=== PATIENT | female | born 1975 | race Caucasian/White ===

== ENCOUNTER 2018-10-31 06:21 | Day surgery (SDC) | payer OTHER ==
[2018-10-31] MEDS ORDERED: ceFAZolin 2 GM in Premix Bag 1 BAG IV ONE (06:23)
[2018-10-31] MEDS: Lactated Ringers 1,000 ML IV SCH ×2 (06:55→11:47)
[2018-10-31 07:07] LABS: CHLORIDE,CL 107 mmol/L (98-107); SODIUM,NA 141 mmol/L (136-145)
[2018-10-31] MEDS ORDERED: Scopolamine 1.5 MG Transdermal Patch TRDERM PRN ×2 (07:12→07:43)
--- NOTE | 2018-10-31 07:13 | PCM.PREANE ---
Preanesthetic Assessment - Anesthesia/Transfusion/Family Hx Anesthesia History: Prior Anesthesia Without Reaction Family History of Anesthesia Reaction: No Transfusion History: No Prior Transfusion(s) - Review of Systems General: No Symptoms Pulmonary: No Symptoms Cardiovascular: No Symptoms Gastrointestinal: No Symptoms Neurological: No Symptoms Other: Reports: None - Physical Assessment NPO Status Date: 10/31/18 NPO Status Time: 05:00 O2 Sat by Pulse Oximetry: 99 Respiratory Rate: 16 Vital Signs: Last Vital Signs Temp 96.6 F 10/31/18 06:45 Pulse 88 10/31/18 06:45 Resp 16 10/31/18 06:45 BP 120/79 10/31/18 06:45 Pulse Ox 99 10/31/18 06:45 Height: 5 ft 4 in Weight: 85.548 kg ASA Class: 2 Mental Status: Alert & Oriented x3 Airway Class: Mallampati = 1 Dentition: Reports: Normal Dentition ROM/Head Extension: Full Lungs: Clear to Auscultation, Normal Respiratory Effort Cardiovascular: Regular Rate, Regular Rhythm - Lab Values: Laboratory Last Values WBC 9.74 K/uL (4.0-11.0) 10/31/18 06:45 RBC 4.34 M/uL (4.30-5.90) 10/31/18 06:45 Hgb 13.6 g/dL (12.0-16.0) 10/31/18 06:45 Hct 41.0 % (36.0-46.0) 10/31/18 06:45 MCV 94.5 fL (80.0-98.0) 10/31/18 06:45 MCH 31.3 pg (27.0-32.0) 10/31/18 06:45 MCHC 33.2 g/dL (31.0-37.0) 10/31/18 06:45 RDW Std Deviation 48.7 fl (28.0-62.0) 10/31/18 06:45 RDW Coeff of Becky 14 % (11.0-15.0) 10/31/18 06:45 Plt Count 250 K/uL (150-400) 10/31/18 06:45 MPV 9.70 fL (7.40-12.00) 10/31/18 06:45 Nucleated RBC % 0.0 /100WBC 10/31/18 06:45 Nucleated RBCs # 0 K/uL 10/31/18 06:45 Sodium 141 mmol/L (136-145) 10/31/18 06:45 Potassium 3.8 mmol/L (3.5-5.1) 10/31/18 06:45 Chloride 107 mmol/L (98-107) 10/31/18 06:45 Carbon Dioxide 28.3 mmol/L (21.0-32.0) 10/31/18 06:45 BUN 13 mg/dL (7.0-18.0) 10/31/18 06:45 Creatinine 1.0 mg/dL (0.6-1.0) 10/31/18 06:45 Est Cr Clr Drug Dosing 62.64 mL/min 10/31/18 06:45 Estimated GFR (MDRD) > 60.0 ml/min 10/31/18 06:45 Glucose 96 mg/dL (74-106) 10/31/18 06:45 Calcium 8.6 mg/dL (8.5-10.1) 10/31/18 06:45 - Allergies Allergies/Adverse Reactions: Allergies Allergy/AdvReac Type Severity Reaction Status Date / Time latex Allergy Rash Verified 10/24/18 11:43 shellfish derived Allergy Anaphylactic Verified 10/24/18 11:43 Shock - Blood Blood Available: No - Anesthesia Plan Pre-Op Medication Ordered: None - Acknowledgements Anesthesia Type Planned: General Anesthesia Pt an Appropriate Candidate for the Planned Anesthesia: Yes Alternatives and Risks of Anesthesia Discussed w Pt/Guardian: Yes Pt/Guardian Understands and Agrees with Anesthesia Plan: Yes Additional Comments: anes prob list: htn, asthma, migraine hx, smoker plan: get PreAnesthesia Questionnaire HEENT History: Reports: Other (See Below) Other HEENT History: wears glasses Cardiovascular History: Reports: Hypertension Respiratory History: Reports: Asthma, Other (See Below) Other Respiratory History: thinks she might have sleep apnea Gastrointestinal History: Reports: GERD Other Gastrointestinal History: takes OTC meds Genitourinary History: Reports: Renal 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: Musculoskeletal History: Reports: Arthritis, Fracture Other Musculoskeletal History: hx of fx in toes, ribs and foot Neurological History: Reports: Migraines, TIA, Other (See Below) Other Neuro History: hx of TIA 8 years ago- no residual, hx of motion sickness Psychiatric History: Reports: Anxiety Endocrine/Metabolic History: Reports: Obesity/BMI 30+ - Past Surgical History HEENT Surgical History: Reports: Other (See Below) Other HEENT Surgeries/Procedures: removal of lymph nodes behind ear GI Surgical History: Reports: EGD Female Surgical History: Reports: Section, Tubal Ligation, Other ( See Below) Other Female Surgeries/Procedures: exploratory laparoscopy - SUBSTANCE USE Smoking Status *Q: Current Every Day Smoker Tobacco Use Within Last Twelve Months: Cigarettes Recreational Drug Use History: No - HOME MEDS Home Medications: Home Meds Albuterol [Proventil HFA] 2 puff INH QID PRN 10/24/18 [History] Budesonide/Formoterol [Symbicort 160-4.5 MCG] 2 puff INH BID 10/24/18 [History] Montelukast [Singulair] 10 mg PO DAILY 10/24/18 [History] Valsartan 160 mg PO QAM 10/24/18 [History] amLODIPine Besylate [Norvasc] 10 mg PO QAM 10/24/18 [History] buPROPion HCl [Wellbutrin SR] 150 mg PO BID 10/24/18 [History] - CURRENT (IN HOUSE) MEDS Current Meds: Current Medications Lactated Ringer's (Ringers, Lactated) 1,000 mls @ 100 mls/hr IV ASDIRECTED [facility] Last Admin: 10/31/18 06:55 Dose: 100 mls/hr Discontinued Medications Cefazolin Sodium/Dextrose 2 gm (/ Premix) 50 mls @ 100 mls/hr IV ONETIME ONE Stop: 10/31/18 06:52
[2018-10-31] MEDS ORDERED: Scopolamine 1.5 MG Transdermal Patch ONE (07:18)
[2018-10-31] MEDS ORDERED: Fluorescein 5 ML Vial ONE (07:30)
[2018-10-31] MEDS ORDERED: Methylene Blue 50 MG/10 ML Ampule ONE (07:30)
[2018-10-31] MEDS ORDERED: Bupivacaine 0.25% 10 ML SDV ONE (07:31)
[2018-10-31] MEDS ORDERED: Dexamethasone 4 MG/ML 5 ML MDV ONE (07:36)
[2018-10-31] MEDS ORDERED: Midazolam 1 MG/ML 2 ML SDV ONE (07:36)
[2018-10-31] MEDS ORDERED: Lidocaine 2% 5 ML SDV ONE ×2 (07:36→07:47)
[2018-10-31] MEDS ORDERED: Ketorolac 30 MG/ML SDV ONE (07:36)
[2018-10-31] MEDS ORDERED: Propofol 200 MG/20 ML SDV ONE (07:36)
[2018-10-31] MEDS ORDERED: Ondansetron 4 MG/2 ML SDV ONE (07:36)
[2018-10-31] MEDS ORDERED: fentaNYL 250 MCG/5 ML SDV ONE (07:36)
[2018-10-31] MEDS ORDERED: Meperidine PF 25 MG/ML Syringe IVPUSH PRN (07:43)
[2018-10-31] MEDS ORDERED: Promethazine 25 MG/ML SDV IM PRN ×2 (07:43→10:02)
[2018-10-31] MEDS ORDERED: Albuterol 0.083% 2.5 MG/3 ML Neb Soln NEB PRN (07:43)
[2018-10-31] MEDS ORDERED: Naloxone 0.4 MG/ML Syringe IVPUSH PRN (07:43)
[2018-10-31] MEDS ORDERED: Ondansetron 4 MG/2 ML SDV IVPUSH PRN ×2 (07:43→10:02)
[2018-10-31] MEDS ORDERED: Acetaminophen 325 MG Tab PO ONE (07:43)
[2018-10-31] MEDS ORDERED: hydrALAZINE 20 MG/ML SDV IVPUSH PRN ×2 (07:43)
[2018-10-31] MEDS ORDERED: Morphine 4 MG/ML Syringe IVPUSH PRN ×2 (07:43→10:02)
[2018-10-31] MEDS ORDERED: Atropine 0.1 MG/ML 10 ML Syringe IVPUSH PRN (07:43)
[2018-10-31] MEDS ORDERED: Metoclopramide 10 MG/2 ML SDV IVPUSH PRN (07:43)
[2018-10-31] MEDS ORDERED: Meperidine PF 25 MG/ML Syringe IV PRN (07:43)
[2018-10-31] MEDS ORDERED: Labetalol 100 MG/20 ML MDV IVPUSH PRN (07:43)
[2018-10-31] MEDS ORDERED: Acetaminophen/HYDROcodone 325-5 MG Tab PO PRN (07:43)
[2018-10-31] MEDS ORDERED: Rocuronium 100 MG/10 ML Syringe ONE (07:47)
[2018-10-31] MEDS ORDERED: Furosemide 40 MG/4 ML VIAL ONE (09:28)
[2018-10-31] MEDS ORDERED: ceFAZolin 1 GM Vial ONE (09:28)
[2018-10-31] MEDS ORDERED: Ketorolac 30 MG/ML SDV IVPUSH PRN (10:02)
[2018-10-31] MEDS ORDERED: Acetaminophen/oxyCODONE 325-5 MG Tab PO PRN (10:02)
[2018-10-31] MEDS ORDERED: Ketorolac 30 MG/ML SDV IVPUSH ONE (10:02)
[2018-10-31] MEDS ORDERED: HYDROmorphone 2 MG/ML Syringe ONE (10:05)
[2018-10-31] MEDS: fentaNYL 100 MCG/2 ML SDV IVPUSH PRN ×2 (10:07→10:35)
[2018-10-31] MEDS: HYDROmorphone 2 MG/ML SDV IVPUSH PRN ×4 (10:08→10:40)
[2018-10-31] MEDS ORDERED: Belladonna Alkaloids/Opium 16.2-30 MG Supp RECTAL PRN (10:14)
--- NOTE | 2018-10-31 10:14 | PCM.OPNOTE ---
- General Post-Op/Procedure Note Date of Surgery/Procedure: 10/31/18 Operative Procedure(s): LAVH/bilateral salpingectomy/cystoscopy Findings: 8 week uterus, tubes with previous modified magdalena tubal, normal appearing ovaries. Bilateral patent ureters Pre Op Diagnosis: Menorrhagia Post-Op Diagnosis: Same Anesthesia Technique: General ET Tube Primary Surgeon: Edilma Sanchez Pathology: uterus, tubes Fluid Replacement, Intraop: 1,500 EBL in mLs: 100 Complications: none known Condition: Stable Free Text/Narrative:: Dictation [id number]
--- NOTE | 2018-10-31 11:15 | PCM.POSTAN ---
POST ANESTHESIA ASSESSMENT - VITAL SIGNS Pulse Rate: 76 SaO2: 98 Resp Rate: 14 Blood Pressure: 128/75 - RESPIRATORY Respiratory Status: Respiratory Rate WNL, Airway Patent, O2 Saturation Stable - CARDIOVASCULAR CV Status: Pulse Rate WNL, Blood Pressure Stable - GASTROINTESTINAL GI Status: No Symptoms - POST OP HYDRATION Hydration Status: Adequate & Stable (Awake alert, questions answered. No signs or symptoms of anesthesia related problems)
[2018-10-31] MEDS ORDERED: HYDROmorphone 1 MG/ML Syringe IVPUSH ONE (11:59)
--- NOTE | 2018-10-31 12:24 | OR ---
SURGEON: Edilma Sanchez M.D. DATE OF PROCEDURE: 10/31/2018 PREOPERATIVE DIAGNOSIS: Menorrhagia. POSTOPERATIVE DIAGNOSIS: Menorrhagia. PROCEDURES: Laparoscopic-assisted vaginal hysterectomy, bilateral salpingectomy, cystoscopy. PRIMARY SURGEON: Edilma Sanchez MD. CHEMISTRY LABORATORY TECHNICIAN: Sonja Cordova. ANESTHESIA: General endotracheal anesthesia. ESTIMATED BLOOD LOSS: 100 mL. FLUIDS: 1500 mL of crystalloid. COMPLICATIONS: None known. FINDINGS: An 8-week size uterus. Fallopian tubes with previous modified Moon tubal ligation. Normal-appearing ovaries. Bilateral patent ureters. DISPOSITION: The patient to PACU, stable. PROCEDURE DETAILS: Yazmin is a 43-year-old female, who has ongoing difficulties with menorrhagia. At this time, she would like to proceed with definitive intervention in the form of hysterectomy. Risks of procedure have been discussed. Proper consent obtained. The patient was taken to the operating room where she underwent general endotracheal anesthesia, was placed in modified dorsal lithotomy position, and was prepped and draped in usual sterile technique. SCDs to lower extremities. Robbins to gravity. Received Ancef prophylactically. Time-out was performed. Speculum was introduced in the vagina. Cervix was grasped with an Allis clamp, and after gently dilating the cervix to 5 mm, a uterine HUMI manipulator was now gently placed. Balloon insufflated. All instruments other than the uterine manipulator were now removed from the vagina. Gloves changed. Attention turned abdominally. Infraumbilically, a 5 mm skin incision was created. Dissected through with hemostat down through the fascia. Anterior abdominal wall tented upward. A Veress needle was gently introduced. Saline hanging drop test was performed. Pneumoperitoneum was achieved. Veress needle was removed. A 5 mm trocar was introduced followed by laparoscope, and peritoneal contents were identified. The patient was placed in Trendelenburg positioning. Uterus was able to be mobilized easily. Left lower quadrant and right lower quadrant trocars were placed under prepping the regions with 0.25% Marcaine, creating 5 mm skin incisions, and introducing the trocars under direct visualization. The ureters were seen peristalsing away from the operative field on either side of the pelvis. The left fallopian tube was able to be isolated and using LigaSure performed a left salpingectomy up to the level of the cornua and then coming along the midline with LigaSure was able to cauterize serial pedicles as well transected them including the upper portion of the broad ligament, mid broad ligament including round ligament, base of the broad ligament, cardinal ligament, down to the level of the uterosacral ligament. Anteriorly, the bladder peritoneum was tented upward and the uterovesical reflection was visualized. There was a fair amount of scarring from her previous delivery, however, was able to create a bladder flap nicely and mobilized the bladder away from the lower uterine segment, cervix. In a similar fashion, this was performed on the patient's right side. The right fallopian tube was able to be isolated. A salpingectomy was performed up to the level of the cornua, brought the LigaSure now down in the midline port and was able to secure pedicles including the upper portion of the broad ligament, the medial aspect of the broad ligament including the round ligament, base of the broad ligament, cardinal ligament down to the level of the uterosacral ligament. Marion that the laparoscopic portion of case had been satisfactorily performed, therefore, all laparoscopic instruments removed. Pneumoperitoneum was released. Attention was turned vaginally. Cervix grasped with Domonique clamp after placing a weighted speculum and an anterior sidewall Dalton. Cervix was circumscribed with Bovie cautery. The overlying mucosa, anterior and posterior, was dissected sharply and bluntly away from the underlying peritoneum. Posterior peritoneum was tented downward and entered sharply. Longer weighted speculum replaced the shorter, and anteriorly, the anterior cul-de-sac was now gently entered with Metzenbaum scissors. A Bjorn was placed to mobilize the bladder away from operative field. Jadiel clamp was used to secure uterosacral ligament on either side, transected, and suture ligated with 2-0 Vicryl. Further pedicle on either side was able to be secured, transected, and suture ligated with 2-0 Vicryl. Uterus and fallopian tubes were now able to be handed off to the behavioral services tech to be sent to pathology. The pedicles were now closely inspected. A small area of oozing along the right pelvic sidewall was now able to be secured with Jadiel clamp and suture ligated. The vaginal cuff and uterosacral ligament on either side were able to be plicated together with 2-0 Vicryl. The cuff was now closed using 0 Vicryl in continuous running locked fashion. All sutures trimmed. The cuff was inspected, found to be hemostatic. Robbins balloon was desufflated. IV fluorescein and IV Lasix had been instilled per the Anesthesia provider. Cystoscope was now introduced using normal saline as distention media. The dome of the bladder was able to be visualized, found to be intact. Trigone was now inspected. The right ureteral orifice followed by the left orifice able to be visualized. Fluorescein-dyed urine was seen streaming from them, helping to ensure ureteral patency. The bladder was now drained. The cystoscope was removed. Robbins catheter was placed. The vaginal cuff once again inspected and found to be hemostatic. All instruments removed from the vagina. Attention was turned abdominally after gloves changed. The pneumoperitoneum was once again achieved. The laparoscope was introduced. Pelvis was now inspected. Operative field was copiously irrigated with sterile water, suction irrigated. Any areas of oozing were cauterized with LigaSure. There was one small area along the right region of the uterosacral ligament. Other than this, the pedicles appeared hemostatic. Relief pressure was decreased to 5 mmHg. Once again, hemostasis appeared evident. Therefore, the pneumoperitoneum was released. Laparoscopic instruments were removed. The trocars removed under direct visualization followed by the laparoscope and infraumbilical trocar after releasing pneumoperitoneum. The skin edges were reapproximated using 4-0 Monocryl in the subcuticular fashion. Sponge, instrument, and needle count was correct x2. The patient has tolerated the procedure well. She will go to recovery room in stable condition, specimens to pathology. EVY / LAURA /[id number]
[2018-10-31] MEDS: Acetaminophen/oxyCODONE 325-5 MG Tab PO PRN (15:41)
[2018-10-31] MEDS ORDERED: HYDROmorphone 1 MG/ML Syringe IVPUSH PRN (17:56)
--- NOTE | 2018-10-31 18:28 | PCM.SN ---
- Free Text/Narrative Note: Patient is sitting up in bed--has ambulated earlier. Pain is controlled. Denies nausea. VS are stable. Abdominal dressings are dry and intact. Explained procedure and intraoperative findings. Continue postoperative cares. Remove rene in am. Labs in am. If remains stable, anticipate discharge tomorrow.
[2018-10-31] MEDS: Docusate Sodium 100 MG Cap PO SCH (21:33)
[2018-11-01] MEDS: Acetaminophen/oxyCODONE 325-5 MG Tab PO PRN ×2 (01:05→07:34)
[2018-11-01 05:42] LABS: CHLORIDE,CL 104 mmol/L (98-107); SODIUM,NA 137 mmol/L (136-145)
[2018-11-01] MEDS: Docusate Sodium 100 MG Cap PO SCH (08:37)
--- NOTE | 2018-11-01 08:55 | PCM.SURGPN ---
- General Info Date of Service: 11/01/18 POD#: 1 Functional Status: Reports: Pain Controlled, Tolerating Diet, Ambulating, Urinating - Review of Systems General: Reports: Fatigue. Denies: Fever, Weakness Pulmonary: Denies: Shortness of Breath Cardiovascular: Denies: Chest Pain, Palpitations, Lightheadedness Gastrointestinal: Reports: Abdominal Pain (mild cramping only, pain well controlled). Denies: Nausea, Vomiting Genitourinary: Denies: Flank Pain Musculoskeletal: Reports: No Symptoms Skin: Reports: No Symptoms Neurological: Reports: No Symptoms Psychiatric: Reports: No Symptoms - Patient Data Vitals - Most Recent: Last Vital Signs Temp 36.8 C 11/01/18 07:51 Pulse 74 11/01/18 07:51 Resp 16 11/01/18 07:51 BP 140/87 11/01/18 07:51 Pulse Ox 100 11/01/18 07:51 Weight - Most Recent: 85.275 kg I&O - Last 24 Hours: Intake & Output 10/31/18 11/01/18 11/01/18 22:59 06:59 14:59 Intake Total 1372 2320 Output Total 750 4550 Balance 622 -2230 Lab Results Last 24 Hrs: Laboratory Results - last 24 hr 11/01/18 11/01/18 Range/Units 04:55 04:55 WBC 14.07 H (4.0-11.0) K/uL RBC 4.07 L (4.30-5.90) M/uL Hgb 12.7 (12.0-16.0) g/dL Hct 38.5 (36.0-46.0) % MCV 94.6 (80.0-98.0) fL MCH 31.2 (27.0-32.0) pg MCHC 33.0 (31.0-37.0) g/dL RDW Std Deviation 48.8 (28.0-62.0) fl RDW Coeff of Becky 14 (11.0-15.0) % Plt Count 251 (150-400) K/uL MPV 10.30 (7.40-12.00) fL Neut % (Auto) 77.3 (48.0-80.0) % Lymph % (Auto) 14.3 L (16.0-40.0) % [place] % (Auto) 8.3 (0.0-15.0) % Eos % (Auto) 0.0 (0.0-7.0) % Baso % (Auto) 0.1 (0.0-1.5) % Neut # (Auto) 10.9 H (1.4-5.7) K/uL Lymph # (Auto) 2.0 (0.6-2.4) K/uL [place] # (Auto) 1.2 H (0.0-0.8) K/uL Eos # (Auto) 0.0 (0.0-0.7) K/uL Baso # (Auto) 0.0 (0.0-0.1) K/uL Nucleated RBC % 0.0 /100WBC Nucleated RBCs # 0 K/uL Sodium 137 (136-145) mmol/L Potassium 4.2 (3.5-5.1) mmol/L Chloride 104 (98-107) mmol/L Carbon Dioxide 25.3 (21.0-32.0) mmol/L BUN 7 (7.0-18.0) mg/dL Creatinine 0.9 (0.6-1.0) mg/dL Est Cr Clr Drug Dosing 75.45 mL/min Estimated GFR (MDRD) > 60.0 ml/min Glucose 114 H (74-106) mg/dL Calcium 9.0 (8.5-10.1) mg/dL Med Orders - Current: Current Medications Hydrocodone Bitart/Acetaminophen ([place] 325-5 Mg) 2 tab PO Q6H PRN PRN Reason: Pain (moderate 4-6) Last Admin: 10/31/18 18:44 Dose: 2 tab Albuterol (Proventil Neb Soln) 2.5 mg NEB Q6HRRT PRN PRN Reason: Wheezing Atropine Sulfate (Atropine 0.1 Mg/Ml) 0.4 mg IVPUSH Q5M PRN PRN Reason: Bradycardia Belladonna Alkaloids/Opium (B & O Supprettes No. 15a) 1 supp RECTAL Q6H PRN PRN Reason: Pain Docusate Sodium (Colace) 100 mg PO BID ÓSCAR Last Admin: 11/01/18 08:37 Dose: 100 mg Hydralazine HCl (Apresoline) 10 mg IVPUSH ONETIME PRN PRN Reason: Hypertension Hydralazine HCl (Apresoline) 5 mg IVPUSH ONETIME PRN PRN Reason: Hypertension Lactated Ringer's (Ringers, Lactated) 1,000 mls @ 100 mls/hr IV ASDIRECTED [facility] Last Admin: 10/31/18 11:47 Dose: 100 mls/hr Ketorolac Tromethamine (Toradol) 30 mg IVPUSH Q6H PRN PRN Reason: Pain (severe 7-10) Stop: 11/05/18 10:02 Meperidine HCl (Demerol) 12.5 mg IVPUSH ONETIME PRN PRN Reason: Shivering Meperidine HCl (Demerol) 25 mg IV ONETIME PRN PRN Reason: Shivering Metoclopramide HCl (Reglan) 10 mg IVPUSH ONETIME PRN PRN Reason: Nausea Morphine Sulfate (Morphine) 4 mg IVPUSH Q2H PRN PRN Reason: Pain (severe 7-10) Naloxone HCl (Narcan) 0.1 mg IVPUSH ONETIME PRN PRN Reason: Respiratory Depression Ondansetron HCl (Zofran) 8 mg IVPUSH ONETIME PRN PRN Reason: Nausea Ondansetron HCl (Zofran) 4 mg IVPUSH Q6H PRN PRN Reason: Nausea/Vomiting Oxycodone/Acetaminophen (Percocet 325-5 Mg) 1 tab PO Q4H PRN PRN Reason: Pain (moderate 4-6) Oxycodone/Acetaminophen (Percocet 325-5 Mg) 2 tab PO Q4H PRN PRN Reason: Pain (moderate 4-6) Last Admin: 11/01/18 07:34 Dose: 2 tab Promethazine HCl (Phenergan) 12.5 mg IM ONETIME PRN PRN Reason: Nausea Promethazine HCl (Phenergan) 25 mg IM Q6H PRN PRN Reason: Nausea/Vomiting Scopolamine (Transderm-Scop) 1.5 mg TRDERM Q72H PRN PRN Reason: Nausea/Vomiting Last Admin: 10/31/18 07:18 Dose: 1.5 mg Scopolamine (Transderm-Scop) 1.5 mg TRDERM Q72H PRN PRN Reason: Nausea Discontinued Medications Acetaminophen (Tylenol) 650 mg PO NOW ONE Stop: 10/31/18 07:44 Last Admin: 10/31/18 11:37 Dose: Not Given Bupivacaine HCl (Sensorcaine-Mpf 0.25%) Confirm Administered Dose 20 ml .ROUTE .STK-MED ONE Stop: 10/31/18 07:32 Cefazolin Sodium (Ancef) Confirm Administered Dose 2 gm .ROUTE .STK-MED ONE Stop: 10/31/18 09:29 Dexamethasone (Dexamethasone) Confirm Administered Dose 20 mg .ROUTE .STK-MED ONE Stop: 10/31/18 07:37 Fentanyl (Sublimaze) Confirm Administered Dose 250 mcg .ROUTE .STK-MED ONE Stop: 10/31/18 07:37 Fentanyl (Sublimaze) 50 mcg IVPUSH Q5M PRN PRN Reason: Pain (severe 7-10) Stop: 11/01/18 07:44 Last Admin: 10/31/18 10:35 Dose: 50 mcg Fluorescein Sodium (Ak-Fluor) Confirm Administered Dose 5 ml .ROUTE .STK-MED ONE Stop: 10/31/18 07:31 Furosemide (Lasix) Confirm Administered Dose 40 mg .ROUTE .STK-MED ONE Stop: 10/31/18 09:29 Hydromorphone HCl (Dilaudid) 0.25 mg IVPUSH Q10M PRN PRN Reason: Pain (severe 7-10) Stop: 11/01/18 07:44 Last Admin: 10/31/18 10:40 Dose: 0.25 mg Hydromorphone HCl (Dilaudid) Confirm Administered Dose 2 mg .ROUTE .STK-MED ONE Stop: 10/31/18 10:06 Last Admin: 10/31/18 17:03 Dose: Not Given Hydromorphone HCl (Dilaudid) 1 mg IVPUSH ONETIME ONE Stop: 10/31/18 12:00 Last Admin: 10/31/18 10:45 Dose: 1 mg Hydromorphone HCl (Dilaudid) 0.25 mg IVPUSH Q10M PRN PRN Reason: Pain (severe 7-10) Stop: 11/01/18 07:44 Cefazolin Sodium/Dextrose 2 gm (/ Premix) 50 mls @ 100 mls/hr IV ONETIME ONE Stop: 10/31/18 06:52 Last Admin: 10/31/18 11:36 Dose: Not Given Ketorolac Tromethamine (Toradol) Confirm Administered Dose 30 mg .ROUTE .STK- MED ONE Stop: 10/31/18 07:37 Ketorolac Tromethamine (Toradol) 30 mg IVPUSH ONETIME ONE Stop: 10/31/18 10:03 Last Admin: 10/31/18 10:38 Dose: 30 mg Labetalol HCl (Normodyne) 10 mg IVPUSH Q6H PRN; Protocol PRN Reason: Hypotension Stop: 11/01/18 07:44 Lidocaine (Xylocaine-Mpf 2%) Confirm Administered Dose 5 ml .ROUTE .STK-MED ONE Stop: 10/31/18 07:37 Lidocaine (Xylocaine-Mpf 2%) Confirm Administered Dose 5 ml .ROUTE .STK-MED ONE Stop: 10/31/18 07:48 Methylene Blue (Provayblue) Confirm Administered Dose 50 mg .ROUTE .STK-MED ONE Stop: 10/31/18 07:31 Midazolam HCl (Versed 1 Mg/Ml) Confirm Administered Dose 2 mg .ROUTE .STK-MED ONE Stop: 10/31/18 07:37 Morphine Sulfate (Morphine) 4 mg IVPUSH Q10M PRN PRN Reason: Pain (severe 7-10) Stop: 11/01/18 07:44 Ondansetron HCl (Zofran) Confirm Administered Dose 8 mg .ROUTE .STK-MED ONE Stop: 10/31/18 07:37 Propofol (Diprivan 20 Ml) Confirm Administered Dose 200 mg .ROUTE .STK-MED ONE Stop: 10/31/18 07:37 Rocuronium [place] (Zemuron) Confirm Administered Dose 100 mg .ROUTE .STK-MED ONE Stop: 10/31/18 07:48 Scopolamine (Transderm-Scop) Confirm Administered Dose 1.5 mg .ROUTE .STK-MED ONE Stop: 10/31/18 07:19 Last Admin: 10/31/18 11:36 Dose: Not Given - Exam Wound/Incisions: Healing Well, Dressing Dry and Intact General: Alert, Oriented Lungs: Normal Respiratory Effort Cardiovascular: Regular Rate, Regular Rhythm GI/Abdominal Exam: Normal Bowel Sounds, Soft Extremities: No: Pedal Edema, Jaya's Sign Skin: Warm, Dry, Intact Neurological: No New Focal Deficit Psy/Mental Status: Alert, Normal Affect, Normal Mood - Problem List & Annotations (1) Menorrhagia SNOMED Code(s): 202049284 Code(s): N92.0 - EXCESSIVE AND FREQUENT MENSTRUATION WITH REGULAR CYCLE Status: Acute Current Visit: Yes - Problem List Review Problem List Initiated/Reviewed/Updated: Yes - My Orders Last 24 Hours: Active Orders 24 hr Category Date Time Status Patient Status [ADT] Routine ADT 10/31/18 10:02 Active Antiembolic Devices [RC] PER UNIT ROUTINE Care 10/31/18 10:02 Active Notify Provider Intake and Out [RC] ASDIRECTED Care 10/31/18 10:02 Active Notify Provider Vital Signs [RC] ASDIRECTED Care 10/31/18 10:02 Active Oxygen Therapy [RC] ASDIRECTED Care 10/31/18 10:02 Active RT Incentive Spirometry [RC] Q2HWA Care 10/31/18 10:02 Active Ready for Discharge [RC] PER UNIT ROUTINE Care 11/01/18 08:52 Ordered Up With Assistance [RC] PER UNIT ROUTINE Care 10/31/18 10:02 Active Up ad Dede [RC] PER UNIT ROUTINE Care 10/31/18 10:02 Active Urinary Catheter Removal [RC] Per Unit Routine Care 10/31/18 10:02 Active Vital Signs [RC] PER UNIT ROUTINE Care 10/31/18 10:02 Active Regular Diet [DIET] Diet 10/31/18 Lunch Active Acetaminophen/oxyCODONE [Percocet 325-5 MG] Med 10/31/18 10:02 Active 1 tab PO Q4H PRN Acetaminophen/oxyCODONE [Percocet 325-5 MG] Med 10/31/18 10:02 Active 2 tab PO Q4H PRN Belladonna/Opium [B & O Supprettes No. 15A] Med 10/31/18 10:14 Active 1 supp RECTAL Q6H PRN Docusate Sodium [Colace] Med 10/31/18 21:00 Active 100 mg PO BID Ketorolac [Toradol] Med 10/31/18 10:02 Active 30 mg IVPUSH Q6H PRN Morphine Med 10/31/18 10:02 Active 4 mg IVPUSH Q2H PRN Ondansetron [Zofran] Med 10/31/18 10:02 Active 4 mg IVPUSH Q6H PRN Promethazine [Phenergan] Med 10/31/18 10:02 Active 25 mg IM Q6H PRN Peripheral IV Discontinue [OM.PC] Routine Oth 10/31/18 10:02 Ordered Sequential Compression Device [OM.PC] Per Unit Routine Oth 10/31/18 10:02 Ordered Resuscitation Status Routine Resus Stat 10/31/18 10:02 Ordered Medication Orders Hydrocodone Bitart/Acetaminophen ([place] 325-5 Mg) 2 tab PO Q6H PRN PRN Reason: Pain (moderate 4-6) Last Admin: 10/31/18 18:44 Dose: 2 tab Albuterol (Proventil Neb Soln) 2.5 mg NEB Q6HRRT PRN PRN Reason: Wheezing Atropine Sulfate (Atropine 0.1 Mg/Ml) 0.4 mg IVPUSH Q5M PRN PRN Reason: Bradycardia Belladonna Alkaloids/Opium (B & O Supprettes No. 15a) 1 supp RECTAL Q6H PRN PRN Reason: Pain Docusate Sodium (Colace) 100 mg PO BID [facility] Last Admin: 11/01/18 08:37 Dose: 100 mg Admin: 10/31/18 21:33 Dose: 100 mg Hydralazine HCl (Apresoline) 10 mg IVPUSH ONETIME PRN PRN Reason: Hypertension Hydralazine HCl (Apresoline) 5 mg IVPUSH ONETIME PRN PRN Reason: Hypertension Lactated Ringer's (Ringers, Lactated) 1,000 mls @ 100 mls/hr IV ASDIRECTED [facility] Last Admin: 10/31/18 11:47 Dose: 100 mls/hr Infusion: 10/31/18 11:47 Dose: 100 mls/hr Admin: 10/31/18 06:55 Dose: 100 mls/hr Ketorolac Tromethamine (Toradol) 30 mg IVPUSH Q6H PRN PRN Reason: Pain (severe 7-10) Stop: 11/05/18 10:02 Meperidine HCl (Demerol) 12.5 mg IVPUSH ONETIME PRN PRN Reason: Shivering Meperidine HCl (Demerol) 25 mg IV ONETIME PRN PRN Reason: Shivering Metoclopramide HCl (Reglan) 10 mg IVPUSH ONETIME PRN PRN Reason: Nausea Morphine Sulfate (Morphine) 4 mg IVPUSH Q2H PRN PRN Reason: Pain (severe 7-10) Naloxone HCl (Narcan) 0.1 mg IVPUSH ONETIME PRN PRN Reason: Respiratory Depression Ondansetron HCl (Zofran) 8 mg IVPUSH ONETIME PRN PRN Reason: Nausea Ondansetron HCl (Zofran) 4 mg IVPUSH Q6H PRN PRN Reason: Nausea/Vomiting Oxycodone/Acetaminophen (Percocet 325-5 Mg) 1 tab PO Q4H PRN PRN Reason: Pain (moderate 4-6) Oxycodone/Acetaminophen (Percocet 325-5 Mg) 2 tab PO Q4H PRN PRN Reason: Pain (moderate 4-6) Last Admin: 11/01/18 07:34 Dose: 2 tab Admin: 11/01/18 01:05 Dose: 2 tab Admin: 10/31/18 15:41 Dose: 2 tab Promethazine HCl (Phenergan) 12.5 mg IM ONETIME PRN PRN Reason: Nausea Promethazine HCl (Phenergan) 25 mg IM Q6H PRN PRN Reason: Nausea/Vomiting Scopolamine (Transderm-Scop) 1.5 mg TRDERM Q72H PRN PRN Reason: Nausea/Vomiting Last Admin: 10/31/18 07:18 Dose: 1.5 mg Scopolamine (Transderm-Scop) 1.5 mg TRDERM Q72H PRN PRN Reason: Nausea - Assessment Assessment (Free Text/Narrative):: POD 1 status post LAVH/bilateral salpingectomy/cystoscopy - Plan Plan (Free Text/Narrative):: Patient is doing well overall. She is voiding. Scant blood on maría pad. She is ambulating and tolerating diet. VS and labs are stable. Discharge to home today. Follow up at [facility] 2 and 6 weeks. Discharge instructions reviewed. Infection and bleeding warnings reviewed.
== END 2018-11-01 09:30 | disposition home or self-care (01) ==
LOC: MW.SDS 06:21 → UNDOADMOB 11:31 → MW.MS 11:31 → UNDODISOB 11-01 09:30 → MW.SDS 11-01 09:30
PROVIDERS: ATTEND Obstetrics & Gynecology
DX: N92.1 Excessive and frequent menstruation with irregular cycle (principal); I10 Essential (primary) hypertension; J45.909 Unspecified asthma, uncomplicated; K21.9 Gastro-esophageal reflux disease without esophagitis; M19.90 Unspecified osteoarthritis, unspecified site; E66.9 Obesity, unspecified; F17.210 Nicotine dependence, cigarettes, uncomplicated; Z68.30 Body mass index [BMI] 30.0-30.9, adult; Z79.899 Other long term (current) drug therapy; Z91.040 Latex allergy status; Z91.013 Allergy to seafood
CPT/HCPCS: 36415; 58552; 80048; 84703; 85025; 85027; 86850; 86900; 86901; A9270; J0690; J1100; J1170; J1885; J1940; J2001; J2250; J2405; J2704; J3010; J3490; J7120; 00944

== ENCOUNTER 2022-07-08 10:34 | Emergency (ER) | payer OTHER ==
[2022-07-08] MEDS ORDERED: Sodium Chloride 0.9% 1,000 ML IV ONE (10:46)
[2022-07-08] MEDS ORDERED: Ondansetron 4 MG/2 ML SDV IVPUSH ONE (10:46)
[2022-07-08] MEDS ORDERED: Ketorolac 30 MG/ML SDV IVPUSH ONE (10:46)
[2022-07-08] MEDS ORDERED: LORazepam 2 MG/ML SDV IVPUSH ONE (10:47)
== END 2022-07-08 13:02 | disposition home or self-care (01) ==
LOC: MW.ED 10:34
DX: R51.9 Headache, unspecified (principal); I10 Essential (primary) hypertension; J45.909 Unspecified asthma, uncomplicated; E66.9 Obesity, unspecified; Z68.30 Body mass index [BMI] 30.0-30.9, adult; Z72.0 Tobacco use; Z91.040 Latex allergy status; Z91.013 Allergy to seafood; Z79.899 Other long term (current) drug therapy
CPT/HCPCS: 96361; 96374; 96375; 99283; J1885; J2060; J2405; J7030

== ENCOUNTER 2023-05-05 15:03 | Emergency (ER) | payer OTHER ==
[2023-05-05 18:06] LABS: CORONAVIRUS COVID-19 NAA NEGATIVE (NEGATIVE); INFLUENZA A NAA NEGATIVE (NEGATIVE); INFLUENZA B NAA NEGATIVE (NEGATIVE)
== END 2023-05-05 18:44 | disposition home or self-care (01) ==
LOC: MW.ED 15:03
DX: J32.9 Chronic sinusitis, unspecified (principal); I10 Essential (primary) hypertension; J45.909 Unspecified asthma, uncomplicated; E66.9 Obesity, unspecified; F17.210 Nicotine dependence, cigarettes, uncomplicated; Z91.030 Bee allergy status; Z91.040 Latex allergy status; Z91.013 Allergy to seafood; Z68.31 Body mass index [BMI] 31.0-31.9, adult; Z79.899 Other long term (current) drug therapy
CPT/HCPCS: 0240U; 71045; 93005; 99284; 93010; 99283

== ENCOUNTER 2025-02-06 09:21 | Emergency (ER) | payer BC ==
[2025-02-06 10:35] LABS: BASOPHILS ABSOLUTE AUTO 0.08 K/uL (0.00-0.20); BASOPHILS PERCENT AUTO 1.3 % (0.0-1.0); EOSINOPHILS ABSOLUTE AUTO 0.13 K/uL (0.00-0.45); EOSINOPHILS PERCENT AUTO 2.1 % (0.0-6.0); IMMATURE GRAN ABSOLUTE AUTO 0.01 K/uL (0.00-0.05); IMMATURE GRAN PERCENT AUTO 0.2 % (0.0-0.4); LYMPHOCYTES ABSOLUTE AUTO 1.24 K/uL (1.00-4.80); LYMPHOCYTES PERCENT AUTO 20.0 % (24.0-44.0); MEAN PLATELET VOLUME 9.7 fL (9.4-12.3); MONOCYTES ABSOLUTE AUTO 0.36 K/uL (0.00-0.80); MONOCYTES PERCENT AUTO 5.8 % (0.0-8.0); NEUTROPHILS ABSOLUTE AUTO 4.37 K/uL (1.80-7.70); NEUTROPHILS PERCENT AUTO 70.6 % (41.0-71.0); NRBC ABSOLUTE 0.00 K/uL (0.00-0.02); NRBC PERCENT 0.0 /100WBC (0.0-0.2); PLATELET COUNT,PLT 288 K/uL (150-400); RED BLOOD CELL COUNT 4.30 M/uL (4.10-5.30); WHITE BLOOD CELL COUNT,WBC 6.19 K/uL (3.9-11.3)
[2025-02-06 10:57] LABS: A/G RATIO 1.1 (0.9-1.6); ALANINE AMINOTRANSFERASE,ALT 20.0 IU/L (14-63); ASPARTATE AMNIOTRANSFERASE,AST 14.0 IU/L (15-37); BILIRUBIN TOTAL 0.3 mg/dL (0.2-1.0); BLOOD UREA NITROGEN,BUN 10.0 mg/dL (7.0-18.0); CARBON DIOXIDE,CO2 24.6 mmol/L (21.0-32.0); CHLORIDE,CL 105.0 mmol/L (98-107); CREATININE 1.1 mg/dL (0.6-1.0); EST CRCL DRUG DOSING (CG) 51.18 mL/min; GLUCOSE RANDOM 85.0 mg/dL (74-106); POTASSIUM,K 3.6 mmol/L (3.5-5.1); PROTEIN TOTAL,TP 7.9 g/dL (6.4-8.2); SODIUM,NA 139.0 mmol/L (136-145)
[2025-02-06 11:01] LABS: ESTIMATED GFR 62.0 mL/min (>60)
[2025-02-06 11:04] LABS: APPEARANCE,URINE CLEAR; GLUCOSE,URINE NEGATIVE (NEGATIVE); OCCULT BLOOD,URINE NEGATIVE (NEGATIVE)
[2025-02-06] MEDS ORDERED: Naloxone 0.4 MG/ML SDV IVPUSH PRN (11:47)
[2025-02-06] MEDS: Ondansetron 4 MG/2 ML SDV IVPUSH STA (11:47)
[2025-02-06] MEDS: Iopamidol 755 MG/ML 500 ML Multipack Bottle IVPUSH STA (12:11)
== END 2025-02-06 15:42 | disposition home or self-care (01) ==
LOC: MW.ED 09:21
DX: R10.11 Right upper quadrant pain (principal); I10 Essential (primary) hypertension; K21.9 Gastro-esophageal reflux disease without esophagitis; E66.9 Obesity, unspecified; F17.200 Nicotine dependence, unspecified, uncomplicated; Z79.899 Other long term (current) drug therapy; Z91.040 Latex allergy status; Z91.030 Bee allergy status; Z91.013 Allergy to seafood; Z86.73 Personal history of transient ischemic attack (TIA), and cerebral infarction without residual deficits; Z68.22 Body mass index [BMI] 22.0-22.9, adult
CPT/HCPCS: 36415; 74177; 76856; 80053; 81003; 83690; 84484; 85025; 96374; 96375; 99284; J2270; J2405; J2765; J7030; Q9967

== ENCOUNTER 2025-02-13 11:46 | Emergency (ER) | payer BC ==
[2025-02-13] MEDS: Ondansetron 4 MG/2 ML SDV IVPUSH ONE (13:02)
[2025-02-13 13:10] LABS: BASOPHILS ABSOLUTE AUTO 0.06 K/uL (0.00-0.20); BASOPHILS PERCENT AUTO 0.5 % (0.0-1.0); EOSINOPHILS ABSOLUTE AUTO 0.05 K/uL (0.00-0.45); EOSINOPHILS PERCENT AUTO 0.4 % (0.0-6.0); IMMATURE GRAN ABSOLUTE AUTO 0.04 K/uL (0.00-0.05); IMMATURE GRAN PERCENT AUTO 0.3 % (0.0-0.4); LYMPHOCYTES ABSOLUTE AUTO 1.50 K/uL (1.00-4.80); LYMPHOCYTES PERCENT AUTO 11.3 % (24.0-44.0); MEAN PLATELET VOLUME 9.9 fL (9.4-12.3); MONOCYTES ABSOLUTE AUTO 0.89 K/uL (0.00-0.80); MONOCYTES PERCENT AUTO 6.7 % (0.0-8.0); NEUTROPHILS ABSOLUTE AUTO 10.70 K/uL (1.80-7.70); NEUTROPHILS PERCENT AUTO 80.8 % (41.0-71.0); NRBC ABSOLUTE 0.00 K/uL (0.00-0.02); NRBC PERCENT 0.0 /100WBC (0.0-0.2); PLATELET COUNT,PLT 296 K/uL (150-400); RED BLOOD CELL COUNT 4.31 M/uL (4.10-5.30); WHITE BLOOD CELL COUNT,WBC 13.24 K/uL (3.9-11.3)
[2025-02-13 13:24] LABS: INR 1.03 (0.86-1.11); PTT,PARTIAL THROMBOPLSTIN TIME 26.9 SEC (23.9-30.7)
[2025-02-13 13:33] LABS: A/G RATIO 1.1 (0.9-1.6); ALANINE AMINOTRANSFERASE,ALT 20.0 IU/L (14-63); ASPARTATE AMNIOTRANSFERASE,AST 19.0 IU/L (15-37); BILIRUBIN TOTAL 0.4 mg/dL (0.2-1.0); BLOOD UREA NITROGEN,BUN 12.0 mg/dL (7.0-18.0); CARBON DIOXIDE,CO2 24.8 mmol/L (21.0-32.0); CHLORIDE,CL 103.0 mmol/L (98-107); CREATININE 1.1 mg/dL (0.6-1.0); EST CRCL DRUG DOSING (CG) 53.42 mL/min; GLUCOSE RANDOM 96.0 mg/dL (74-106); POTASSIUM,K 3.5 mmol/L (3.5-5.1); PROTEIN TOTAL,TP 7.5 g/dL (6.4-8.2); SODIUM,NA 140.0 mmol/L (136-145)
[2025-02-13] MEDS: Iopamidol 755 MG/ML 500 ML Multipack Bottle IVPUSH STA (13:49)
[2025-02-13 13:55] LABS: ESTIMATED GFR 62.0 mL/min (>60)
== END 2025-02-13 15:03 | disposition home or self-care (01) ==
LOC: MW.ED 11:46
DX: K52.9 Noninfective gastroenteritis and colitis, unspecified (principal); J45.909 Unspecified asthma, uncomplicated; K21.9 Gastro-esophageal reflux disease without esophagitis; I10 Essential (primary) hypertension; F17.200 Nicotine dependence, unspecified, uncomplicated; Z79.51 Long term (current) use of inhaled steroids; Z86.73 Personal history of transient ischemic attack (TIA), and cerebral infarction without residual deficits; Z91.013 Allergy to seafood; Z91.040 Latex allergy status; Z91.030 Bee allergy status; Z79.899 Other long term (current) drug therapy
CPT/HCPCS: 36415; 74174; 80053; 85025; 85610; 85730; 86850; 86900; 86901; 87045; 87046; 87324; 87449; 87899; 96374; 99284; A9270; J2405; Q9967